=== PATIENT | female | born 1995 | race Caucasian/White ===

== ENCOUNTER 2021-11-07 14:06 | Outpatient (REF) | payer MEDICAID, SELFPAY ==
--- NOTE | ~2021-11-07 | US_ITS ---
EXAMINATION: US PELVIS CLINICAL INFORMATION: Irregular menses COMPARISON: None TECHNIQUE: Ultrasound of the pelvis is performed using both transabdominal and transvaginal transducers along with Doppler. Transvaginal imaging is performed due to inadequate visualization transabdominally. FINDINGS: The uterus is retroverted and retroflexed and measures 12.7 x 3.8 x 5.2 cm in dimension. No focal uterine lesion is seen. Endometrial thickness is normal measuring 0.8 cm. The right ovary is normal-appearing and measures 3.7 x 3.2 x 2.2 m. The left ovary is enlarged and measures 6 x 2.4 x 4.8 cm. There is a heterogeneous partially hyperechoic partially hypoechoic lesion in the left ovary measuring 3.3 x 1.8 x 3.5 cm. This is better seen transabdominally. Complex cyst and dermoid should be considered. Follow-up exam in 10-12 weeks following several menstrual cycles is recommended. There is trace fluid in the pelvis. US/US pelvic and transvaginal IMPRESSION: Normal-appearing uterus and endometrium. Normal-appearing right ovary. Enlarged left ovary and 3.3 x 1.8 x 3.5 cm complex left ovarian lesion, question representing complex cyst or possible dermoid. Short-term follow-up exam in 10-12 weeks following several menstrual cycles is recommended.
== END 2021-11-07 14:07 | disposition home or self-care (01) ==
LOC: HO.US 14:06
PROVIDERS: PCP Internal Medicine; Visit Provider Internal Medicine
DX: D36.9 Benign neoplasm, unspecified site (principal); N92.6 Irregular menstruation, unspecified
CPT/HCPCS: 76830; 76856

== ENCOUNTER 2024-06-09 15:03 | Outpatient (REF) | payer MEDICAID, SELFPAY ==
[2024-06-12 06:07] LABS: TS Negative Control Passed; TS Panel A 0; TS Panel B 0; TS Positive Control Passed; TSpotTB Negative (Negative)
== END 2024-06-09 15:04 | disposition home or self-care (01) ==
LOC: HO.HHCL 15:03
PROVIDERS: Visit Provider Nurse Practitioner Primary Care
DX: Z00.00 Encounter for general adult medical examination without abnormal findings (principal)
CPT/HCPCS: 36415; 86481

== ENCOUNTER 2024-07-01 16:58 | Outpatient (REF) | payer MEDICAID, SELFPAY ==
[2024-07-02 06:02] LABS: CT PCR NOT DETECTED (Not Detect.); NG PCR NOT DETECTED (Not Detect.)
[2024-07-02 10:56] LABS: Bacterial Vaginosis PCR POSITIVE (Negative); Candida Group PCR NOT DETECTED (Not Detect); Candida glab krusei PCR NOT DETECTED (Not Detect); Trichomonas vaginalis PCR NOT DETECTED (Not Detect)
== END 2024-07-01 16:59 | disposition home or self-care (01) ==
LOC: HO.HHCLNP 16:58
PROVIDERS: Visit Provider Nurse Practitioner Primary Care
DX: N89.8 Other specified noninflammatory disorders of vagina (principal); Z11.3 Encounter for screening for infections with a predominantly sexual mode of transmission
CPT/HCPCS: 0352U; 87491; 87591

== ENCOUNTER 2025-07-02 15:51 | Outpatient (REF) | payer MEDICAID, SELFPAY ==
--- OUTSIDE RECORDS SUMMARY | 2025-07-02 09:30 | XMS_ITS | Encounter Summary ---
Author Organization [employer] Address [address] [place] [address] Care Team Providers Care Sheriffs Officer Name Role Phone Flora Vargas Primary Care Provider [phone] Reason for Visit * Reason Comments Annual Exam Encounter Details Date Type Department Care Team ([facility] st Contact Info) Description 07/02/2025 9:30 AM EST Office Visit [facility] [address], [place] [id number] Flora Vargas ANP [address] [place] [address] Healthcare maintenance (Primary Dx); Anxiety and depression; Constipation, unspecified constipation type; Routine screening for STI (sexually transmitted infection); Fatigue, unspecified type; Other tobacco product nicotine dependence, uncomplicated; Dietary counseling; Exercise counseling Social History Tobacco Use Types Packs/Day Years Used Date Smoking Tobacco: Never Smokeless Tobacco: Current Tobacco Cessation:Ready to Q uit: Not Asked; Counseling Given: Not Answered Alcohol Use Standard Drinks/Week Comments Not Currently 0 (1 standard drink = 0.6 oz pur e alcohol) Alcohol Answer Date Recorded How often do you have a drink containing alcohol ? 1 07/01/2024 How many drinks containing a lcohol do you have on a typical day when you are drinking? 2 07/01/2024 How often do you have six or more drinks on one occasion? 1 07/01/2024 Depression Answer Date Recorded Patient Health Questionnaire-9 Score 2 07/02/2025 Patient Health Questionnaire-9 Score 2 07/02/2025 Last PHQ-9: Questionnaire Data Not on file 1 09/01/2024 Housing Stability Answer Date Recorded What is your housing situation today? I have aleksandr martinez 06/24/[address] you li ve. Do you have problems with any of the following? None of the above 06/24/2024 Food Insecurity Answer Date Recorded Within the past 12 months, y ou worried that your food would run out before you got money to buy more: Never True 06/24/2024 Within the past 12 months,th e food you bought just didn't last and you didn't have enough money to get more: Never True 07/2024 Transportation Answer Date Recorded In the past 12 months, has l ack of transportation kept you from medical appts, meetings, work or from getting things needed for daily living? No 06/24/2024 Utilities Answer Date Recorded In the past 12 months, has t he electric, gas, oil or water company threatened to shut off services in your home? No 06/24/2024 Depression Answer Date Recorded Patient Health Questionnaire-2 Score 0 07/02/2025 Internet Access Answer Date Recorded Internet Access Q1 Yes 06/24/2024 Internet Access Q2 Not on file 06/24/2024 Comments Unknown Sex and Gender Information Value Date Recorded Sex Assigned at Female 06/12/2022 10:36 AM EDT Legal Sex Female 10:36 AM EDT Gender Identity Female 06/12/2022 10:36 AM EDT Sexual Orientation Straight 06/12/2022 10 :36 AM EDT documented as of this encounter Last Filed Vital Signs Vital Sign Reading Time Taken Comments Blood Pressure 110/78 07/02/2025 9:46 AM EST Pulse 78 07/02/2025 9:46 AM EST Temperature 36.6 C (97.8 F) 07/02/2025 9:46 AM EST Respiratory Rate 13 07/02/2025 9:46 AM EST Oxygen Saturation 98% 07/02/2025 9:46 AM EST Inhaled Oxygen Concentration - - Weight 82.8 kg (182 lb 8 oz) 07/02/2025 9:46 AM EST Height 157.5 cm (5' 2 ) 07/02/2025 9:46 AM EST Body Mass Index 33.38 07/02/2025 9:46 AM EST documented in this encounter Functional Status * Over the past 2 weeks, how often have you been bothered by any of the following problems? Question Answer Date of Assessment Author Patient Health Questionnaire -2 Score 0 07/02/2025 10:26 AM Kenya Ferrell MA * Little interest or pleasure in doing things Answer Date of Assessment Author Not at all 07/02/2025 10:26 AM Kenya Ferrell MA * Feeling down, depressed, or hopeless Answer Date of Assessment Author Not at all 07/02/2025 10:26 AM Kenya Ferrell MA * Trouble falling or staying asleep, or sleeping too much Answer Date of Assessment Author Several days 07/02/2025 10:26 AM Kenya Ferrell MA * Feeling tired or having little energy Answer Date of Assessment Author Not at all 07/02/2025 10:26 AM Kenya Ferrell MA * Poor appetite or overeating Answer Date of Assessment Author Several days 07/02/2025 10:26 AM Kenya Ferrell MA * Feeling bad about yourself - or that you are a failure or have let yourself or your family down Answer Date of Assessment Author Not at all 07/02/2025 10:26 AM Kenya Ferrell MA * Trouble concentrating on things, such as reading the newspaper or watching television Answer Date of Assessment Author Not at all 07/02/2025 10:26 AM Kenya Ferrell MA * Moving or speaking so slowly that other people could have noticed? Or the opposite - being so fidgety or restless that you have been moving around a lot more than usual. Answer Date of Assessment Author Not at all 07/02/2025 10:26 AM Kenya Ferrell MA * Thoughts that you would be better off or hurting yourself in some way Answer Date of Assessment Author Not at all 07/02/2025 10:26 AM Kenya Ferrell MA * Patient Health Questionnaire-9 Score Answer Date of Assessment Author 2 07/02/2025 10:26 AM Kenya Ferrell MA * Over the last 2 weeks, how often have you been bothered by any of the following problems? Question Answer Date of Assessment Author Feeling nervous, anxious, or on edge 1 07/02/2025 10:25 AM EST Kenya Courtney MA Not being able to stop or co ntrol worrying 0 07/02/2025 10:25 AM EST Kenya Courtney MA Worrying too much about diff erent things 0 07/02/2025 10:25 AM Kenya Ferrell MA Trouble relaxing 0 07/02/2025 10:25 AM EST Kenya Courtney MA Being so restless that it is hard to sit still 0 07/02/2025 10:25 AM EST Kenya Courtney MA Becoming easily annoyed or irritable 0 07/02/2025 10:25 AM Kenya Ferrell MA Feeling afraid as if somethi ng awful might happen 0 07/02/2025 10:25 AM Kenya Ferrell MA TESSA-7 Total Score 1 07/02/2025 10:25 AM Kenya Ferrell MA documented as of this encounter Patient Instructions * Patient Instructions* ALEX San - 07/02/2025 9:30 AM EST Esquema t??josr de tratamiento con parches de nicotina al comenzar con 14 mg: Parche de 14 mg al d??a melyssa 2 a 6 semanas ? Luego, reducir la dosis: 7 mg al d??a melyssa 2 a 6 semanas Para ayudarte a dejar de fumar: usa chicles sin az??car, palillos de dientes, mandarinas, palitos de zanahoria, aumenta el ejercicio, chacha a caminar con regularidad y stevenson de vapear dentro de casa o en el coche. No sustituyas la nicotina por snacks salados o azucarados. [address] Sunday through Sunday 6:00 AM - 3:30 PM* Sunday 6:30 AM - 3 PM* [phone] documented in this encounter Progress Notes * ALEX San - 07/02/2025 9:30 AM EST SUBJECTIVE: Mary Jo Curran is a 29 y.o. year old female who presents for routine physical exam. Denies recent illness, injury, or hospitalization. PMH anxiety, depression, nicotine vape Pap due December 2025 Acute Concerns: Vaping/Nicotine Use - Uses vape containing nicotine - Partner also vapes - Has tried nicotine gum in the past - wants to stop Tiredness - Experiences everyday tiredness, does not exercise or drink enough water. Denies SOB. Chronic constipation is better w/ senna. Does not eat much fruit/veg. Lives w/ and 2 kids. Safe at home BCM BTL BMI Readings from Last 4 Encounters: 07/02/25 33.38 kg/m?? 07/01/24 31.17 kg/m?? 12/25/22 31.53 kg/m?? 10/26/22 32.85 kg/m?? Wt Readings from Last 4 Encounters: 07/02/25 182 lb 8 oz (82.8 kg) 07/01/24 170 lb 6.4 oz (77.3 kg) 12/25/22 172 lb 6.4 oz (78.2 kg) 10/26/22 179 lb 9.6 oz (81.5 kg) Social History Social History Narrative Not on file Problem List[1] Surgical History[2] Family History[3] Review of Systems Constitutional: Positive for fatigue. Negative for chills and fever. HENT: Negative for sore throat. Respiratory: Negative for cough and shortness of breath. Cardiovascular: Negative for chest pain. Gastrointestinal: Negative for constipation and diarrhea. Endocrine: Negative for polydipsia, polyphagia and polyuria. Genitourinary: Negative for dysuria. Musculoskeletal: Negative for arthralgias and back pain. OBJECTIVE: Vitals: 07/02/25 0946 BP: 110/78 BP Location: Left arm Patient Position: Sitting BP Cuff Size: Adult Pulse: 78 Resp: 13 Temp: 97.8 ??F (36.6 ??C) TempSrc: Oral SpO2: 98% Weight: 182 lb 8 oz (82.8 kg) Height: 5' 2 (1.575 m) Physical Exam Constitutional: General: She is not in acute distress. Appearance: Normal appearance. She is not ill-appearing. HENT: Head: Normocephalic and atraumatic. Right Ear: Tympanic membrane, ear canal and external ear normal. Left Ear: Tympanic membrane, ear canal and external ear normal. Nose: No congestion. Mouth/Throat: Mouth: Mucous membranes are moist. Eyes: General: No scleral icterus. Extraocular Movements: Extraocular movements intact. Pupils: Pupils are equal, round, and reactive to light. Neck: Comments: No thyromegaly Cardiovascular: Rate and Rhythm: Normal rate and regular rhythm. Pulmonary: Effort: Pulmonary effort is normal. No accessory muscle usage or respiratory distress. Breath sounds: Normal breath sounds. Musculoskeletal: Right lower leg: No edema. Left lower leg: No edema. Lymphadenopathy: Cervical: No cervical adenopathy. Skin: General: Skin is warm and dry. Neurological: Mental Status: She is alert and oriented to person, place, and time. Cranial Nerves: No cranial nerve deficit. Gait: Gait normal. Psychiatric: Mood and Affect: Mood normal. Behavior: Behavior normal. ASSESSMENT/PLAN Mary Jo was seen today for annual exam. Diagnoses and all orders for this visit: Healthcare maintenance (Primary), dietary and exercise counseling Lifestyle recommendations to improve heart health & lower cholesterol: be as active as able, ideally exercise 150min moderate intensity or 75min vigorous intensity weekly; increase intake of vegetables, fruits, whole grains, fish. Try to minimize intake of sugary or greasy food and drink. Use olive oil or vegetable, peanut, canola, or similar oil for cooking. Decrease or stop drinking alcoholif you drink, quit/decrease vaping/smoking if you smoke. Recommend: Daily exercise at least 30min, moderate intensity, incorporating both cardiovascular exercise and weight training. Adequate protein intake, Recommended at least 20 g per meal of protein to assist with satiety. Decrease soda and sugary beverage consumption. - Lipid Panel, Standard; Future - Hemoglobin A1c; Future - Comprehensive Metabolic Panel; Future - T-SPOT??.TB; Future Anxiety and depression Comments: stable, declines BH. PHQ negative today. encouraging healthy coping. Constipation, unspecified constipation type Cont PRN senna and increase water and fiber intake Routine screening for STI (sexually transmitted infection) - HIV-1/2 Antigen and Antibodies, Fourth Generation, with Reflexes; Future - Hepatitis C Antibody with Reflex to HCV, RNA, Quantitative, Real-Time PCR; Future - Syphilis Screen; Future - Cancel: Chlamydia/N. Gonorrhoeae RNA, TMA, Urogenitial; Future - Chlamydia/N. Gonorrhoeae, PCR, Urine Fatigue, unspecified type - CBC auto differential; Future Other tobacco product nicotine dependence, uncomplicated - nicotine (Nicoderm CQ) 14 MG/24HR patch; Place 1 patch on the skin 1 (one) time each day at the same time. - nicotine (Nicoderm, Step 3) 7 MG/24HR patch; Place 1 patch on the skin 1 (one) time each day at the same time. This note was drafted using Ambient (AI) technology. The patient/patient's guardian has been informed and has consented to the use of this technology: Yes Based on our discussion, I have outlined the following instructions for you: - Make time for regular exercise, such as using an exercise bike or walking pad, and try to exercise with your partner to help with your overall health, anxiety, and fatigue. - Eat more fruits and vegetables every day. - Drink enough water throughout the day to stay hydrated. - Go for the laboratory tests that have been ordered: hemoglobin, blood sugar, complete blood count, and fasting cholesterol. - You have completed a urine test for gonorrhea and chlamydia as part of routine screening. - Use the 14 mg nicotine patch for up to 6 weeks, and you can switch to the 7 mg patch when you feel ready. - If you notice vivid or unusual dreams while using the nicotine patch, remove it before going to bed. - Use nicotine gum if you have cravings, and try regular sugar-free gum, toothpicks, or healthy snacks like mandarins or carrot sticks instead of sugary foods. - Make rules to avoid vaping in your house, car, and around children. - Encourage your partner to join you in quitting vaping. Thank you again for your visit, and we look forward to supporting you in your journey to better health. Follow Up: 6 weeks nicotine f/u Medications Ordered Prior to Encounter[4] Samoan Translation: Kenya ALEXANDER provided Samoan interpretation. [1] Patient Active Problem List Diagnosis Dermoid cyst of left ovary Constipation Anxiety and depression [2] History reviewed. No pertinent surgical history. [3] No family history on file. [4] Current Outpatient Medications on File Prior to Visit Medication Sig Dispense Refill hydrOXYzine HCl (Atarax) 25 MG tablet TAKE 1 TABLET NEEDED FOR ANXIETY, UP TO 3 TIMES A DAY 90 tablet 1 senna-docusate sodium (Senokot-S) 8.6-50 MG tablet 1-2 tabs at bedtime as needed for constipation 180 tablet 3 No current facility-administered medications on file prior to visit. documented in this encounter Miscellaneous Notes * Patient Education Note - ALEX San - 07/02/2025 3:06 PM EST Images from the original note were not included. Educaci?n del paciente Tabla de contenidos Informaci?n sobre el cigarrillo electr?kennedy (Electronic Cigarette Information) Para moody videos y toda maddox educaci?n en l?deniz, visite [email or web address] o escanee juana c?digo QR con maddox tel?fono inteligente. El acceso a juana contenido expirar?? en un a?o. Informaci?n sobre el cigarrillo electr?kennedy Electronic Cigarette Information Los cigarrillos electr?nicos son dispositivos a bater?a que administran nicotina, bulmaro droga muy adictiva, al cuerpo. Vienen en muchas formas, lasha la forma de un cigarrillo, bulmaro pipa, un l?piz e incluso lasha bulmaro memoria USB. Los cigarrillos electr?nicos pueden denominarse cigarros de vapeo, vaporizadores, vapeadores y sistemas electr?nicos de suministro de nicotina (electronic nicotine delivery systems, ENDS). Los cigarrillos electr?nicos tienen un cartucho que contiene bulmaro forma l?quida de nicotina. Cuando bulmaro persona usa el dispositivo, el l?quido se calienta. Luego se convierte en un vapor que la persona inhala. El consumo de cigarrillos electr?nicos puede denominarse ?vapeo?. Se amish que la nicotina aumenta el riesgo de padecer ciertos tipos de c?ncer. Adem?s de la nicotina, los cigarrillos electr?nicos pueden contener otras sustancias qu?micas perjudiciales y cancer?genas, lasha las siguientes: Formaldeh?do. Acetaldeh?do. Metales pesados. Part?culas ultrafinas que pueden inhalarse hacia lo profundo de los pulmones. Colorantes y saborizantes qu?micos. No est?? naman cu?nta nicotina se inhala al vapear; adem?s es dif?cil saber qu?? sustancias qu?micas hay en los l?quidos que se convierten en vapor. No se conocen completamente los efectos del vapeo en la lou, jer es importante que sepa los posibles peligros de usar estos productos. Algunas personas pueden consumir cigarrillos electr?nicos para dejar de fumar tabaco. Sin embargo, no se orellana comprobado que funcione, y la Food and Drug Administration (Administraci?n de Alimentos y Medicamentos, FDA) no orellana aprobado los cigarrillos electr?nicos para juana prop?sito. ?C?mo me puede afectar el consumo de cigarrillos electr?nicos? Podr?a estar en riesgo de desarrollar bulmaro enfermedad pulmonar grave. Hay informes de un aumento en los casos de problemas pulmonares graves, e incluso de muerte, asociados con el consumo de cigarrillos electr?nicos. Puede correr un riesgo a?n m?s alto si: ? Compra cigarrillos electr?nicos o aceites para vapeo en la bowser. ? Agrega sustancias a los cigarrillos electr?nicos que no est?n indicadas por el fabricante. El vapeo puede generarle un deseo incontenible de consumir nicotina. La nicotina hace lo siguiente: ? Cambia los niveles de az?car en la anish. ? Aumenta la frecuencia card?roseanna, la presi?n arterial y la frecuencia respiratoria. ? Aumenta el riesgo de formaci?n de co?gulos de anish (estado hipercoagulable) y de tener diabetes. ? Aumenta el riesgo de enfermedad de las enc?as, que puede conducir a la p?rdida de dientes. Si fuma cigarrillos electr?nicos, es m?s probable que comience a fumar o que fume m?s cigarrillos de tabaco. Volverse adicto a la nicotina puede hacer que el cerebro sea m?s sensible a otras drogas adictivas.Es posible que empiece a consumir otras sustancias adictivas. Puede estar en riesgo de tener bulmaro sobredosis de nicotina. La intoxicaci?n por nicotina puede causar n?useas, v?mitos, convulsiones y dificultad para respirar. El vapeo tambi?n se orellana asociado a la disminuci?n de la memoria y de la concentraci?n en ni?os y adolescentes. Si est?? embarazada, la nicotina de los cigarrillos electr?nicos puede ser perjudicial para el beb?. La nicotina puede causar lo siguiente: ? Problemas cerebrales o pulmonares en el beb?. ? Nacimiento prematuro del beb?. ? Nacimiento del beb?? con un bajo peso. ?Qu?? medidas puedo favio para dejar de vapear? Si puede, deje de vapear por maddox cuenta antes de convertirse en adicto a la nicotina. Si necesita ayuda para dejar de fumar, consulte al m?dico. Existen kori formas eficaces de luchar contra la adicci?n a la nicotina: Terapia de reemplazo de la nicotina. El uso de goma de mascar o un parche con nicotina bloquean el deseo intenso de consumir nicotina. Con el tiempo, puede reducir la cantidad de nicotina que utilizahasta que pueda dejar de consumir nicotina por completo sin tener antojos. Medicamentos recetados aprobados para combatir la adicci?n a la nicotina. Estos impiden el deseo intenso de consumir nicotina o bloquean los efectos de la nicotina. Terapia conductual. Pueden incluir: ? Un programa de autoayuda para dejar de fumar. ? Terapia individual o grupal. ? Un lori de apoyo para dejar de fumar. Hay varios programas nacionales que pueden ayudarle a dejar de fumar o vapear. Estos incluyen los siguientes: Programas de mensajes de texto, lasha SmokefreeTXT. Aplicaciones para tel?fonos m?viles, incluida la aplicaci?n gratuita quitSTART. L?neas directas, lasha [phone] ( ). D?nde encontrar apoyo Puede obtener apoyo en estos sitios: U.S. Department of Health and Human Services (Departamento de Lou y Servicios Humanos de los [place]): smokefree.gov [place] Lung Association (Asociaci?n Estadounidense del Pulm?n): www.lung.org D?nde buscar m?s informaci?n Obtenga m?s informaci?n sobre los cigarrillos electr?nicos en: National [place] on Drug Abuse (Instituto Nacional sobre el Abuso de Drogas): www.drugabuse.gov Centers for Disease Control and Prevention (Centros para el Control y la Prevenci?n de Enfermedades): www.cdc.gov Resumen Los cigarrillos electr?nicos pueden causar adicci?n a la nicotina. Los cigarrillos electr?nicos no est?n aprobados lasha bulmaro forma de dejar de fumar. No es bulmaro alternativa sin riesgos a fumar tabaco. Hay informes de un aumento en los casos de problemas pulmonares graves, e incluso de muerte, asociados con el consumo de cigarrillos electr?nicos. Si puede dejar de vapear por maddox cuenta, h?isac antes de volverse adicto a la nicotina. Si necesita ayuda para dejar de fumar, consulte al m?dico. Existen varios m?todos y programas que pueden ayudarle a dejar de fumar o de vapear. Esta informaci?n no tiene lasha fin reemplazar el consejo del m?dico. Aseg?rese de hacerle al m?dicocualquier pregunta que tenga. Document Released: 2017-04-04 Document Updated: 2022-05-17 Document Reviewed: 2022-05-17 VANCL Patient Education ? 2024 [employer]. * Patient Education Note - ALEX San - 07/02/2025 3:06 PM EST Images from the original note were not included. Patient Education Table of Contents Informaci?n sobre el cigarrillo electr?kennedy (Electronic Cigarette Information) To view videos and all your education online visit, [email or web address] or scan this QR code with your smartphone. Access to this content will in one year. Informaci?n sobre el cigarrillo electr?kennedy Electronic Cigarette Information Los cigarrillos electr?nicos son dispositivos a bater?a que administran nicotina, bulmaro droga muy adictiva, al cuerpo. Vienen en muchas formas, lasha la forma de un cigarrillo, bulmaro pipa, un l?piz e incluso lasha bulmaro memoria USB. Los cigarrillos electr?nicos pueden denominarse cigarros de vapeo, vaporizadores, vapeadores y sistemas electr?nicos de suministro de nicotina (electronic nicotine delivery systems, ENDS). Los cigarrillos electr?nicos tienen un cartucho que contiene bulmaro forma l?quida de nicotina. Cuando bulmaro persona usa el dispositivo, el l?quido se calienta. Luego se convierte en un vapor que la persona inhala. El consumo de cigarrillos electr?nicos puede denominarse ?vapeo?. Se amish que la nicotina aumenta el riesgo de padecer ciertos tipos de c?ncer. Adem?s de la nicotina, los cigarrillos electr?nicos pueden contener otras sustancias qu?micas perjudiciales y cancer?genas, lasha las siguientes: Formaldeh?do. Acetaldeh?do. Metales pesados. Part?culas ultrafinas que pueden inhalarse hacia lo profundo de los pulmones. Colorantes y saborizantes qu?micos. No est?? naman cu?nta nicotina se inhala al vapear; adem?s es dif?cil saber qu?? sustancias qu?micas hay en los l?quidos que se convierten en vapor. No se conocen completamente los efectos del vapeo en la lou, jer es importante que sepa los posibles peligros de usar estos productos. Algunas personas pueden consumir cigarrillos electr?nicos para dejar de fumar tabaco. Sin embargo, no se orellana comprobado que funcione, y la Food and Drug Administration (Administraci?n de Alimentos y Medicamentos, FDA) no orellana aprobado los cigarrillos electr?nicos para juana prop?sito. ?C?mo me puede afectar el consumo de cigarrillos electr?nicos? Podr?a estar en riesgo de desarrollar bulmaro enfermedad pulmonar grave. Hay informes de un aumento en los casos de problemas pulmonares graves, e incluso de muerte, asociados con el consumo de cigarrillos electr?nicos. Puede correr un riesgo a?n m?s alto si: ? Compra cigarrillos electr?nicos o aceites para vapeo en la bowser. ? Agrega sustancias a los cigarrillos electr?nicos que no est?n indicadas por el fabricante. El vapeo puede generarle un deseo incontenible de consumir nicotina. La nicotina hace lo siguiente: ? Cambia los niveles de az?car en la anish. ? Aumenta la frecuencia card?roseanna, la presi?n arterial y la frecuencia respiratoria. ? Aumenta el riesgo de formaci?n de co?gulos de anish (estado hipercoagulable) y de tener diabetes. ? Aumenta el riesgo de enfermedad de las enc?as, que puede conducir a la p?rdida de dientes. Si fuma cigarrillos electr?nicos, es m?s probable que comience a fumar o que fume m?s cigarrillos de tabaco. Volverse adicto a la nicotina puede hacer que el cerebro sea m?s sensible a otras drogas adictivas.Es posible que empiece a consumir otras sustancias adictivas. Puede estar en riesgo de tener bulmaro sobredosis de nicotina. La intoxicaci?n por nicotina puede causar n?useas, v?mitos, convulsiones y dificultad para respirar. El vapeo tambi?n se orellana asociado a la disminuci?n de la memoria y de la concentraci?n en ni?os y adolescentes. Si est?? embarazada, la nicotina de los cigarrillos electr?nicos puede ser perjudicial para el beb?. La nicotina puede causar lo siguiente: ? Problemas cerebrales o pulmonares en el beb?. ? Nacimiento prematuro del beb?. ? Nacimiento del beb?? con un bajo peso. ?Qu?? medidas puedo favio para dejar de vapear? Si puede, deje de vapear por maddox cuenta antes de convertirse en adicto a la nicotina. Si necesita ayuda para dejar de fumar, consulte al m?dico. Existen kori formas eficaces de luchar contra la adicci?n a la nicotina: Terapia de reemplazo de la nicotina. El uso de goma de mascar o un parche con nicotina bloquean el deseo intenso de consumir nicotina. Con el tiempo, puede reducir la cantidad de nicotina que utilizahasta que pueda dejar de consumir nicotina por completo sin tener antojos. Medicamentos recetados aprobados para combatir la adicci?n a la nicotina. Estos impiden el deseo intenso de consumir nicotina o bloquean los efectos de la nicotina. Terapia conductual. Pueden incluir: ? Un programa de autoayuda para dejar de fumar. ? Terapia individual o grupal. ? Un lori de apoyo para dejar de fumar. Hay varios programas nacionales que pueden ayudarle a dejar de fumar o vapear. Estos incluyen los siguientes: Programas de mensajes de texto, lasha SmokefreeTXT. Aplicaciones para tel?fonos m?viles, incluida la aplicaci?n gratuita quitSTART. L?neas directas, lasha ( ). D?nde encontrar apoyo Puede obtener apoyo en estos sitios: U.S. Department of Health and Human Services (Departamento de Lou y Servicios Humanos de los [place] Un[place]): smokefree.gov [place] Lung Association (Asociaci?n Estadounidense del Pulm?n): www.lung.org D?nde buscar m?s informaci?n Obtenga m?s informaci?n sobre los cigarrillos electr?nicos en: National [place] on Drug Abuse (Instituto Nacional sobre el Abuso de Drogas): www.drugabuse.gov Centers for Disease Control and Prevention (Centros para el Control y la Prevenci?n de Enfermedades): www.cdc.gov Resumen Los cigarrillos electr?nicos pueden causar adicci?n a la nicotina. Los cigarrillos electr?nicos no est?n aprobados lasha bulmaro forma de dejar de fumar. No es bulmaro alternativa sin riesgos a fumar tabaco. Hay informes de un aumento en los casos de problemas pulmonares graves, e incluso de muerte, asociados con el consumo de cigarrillos electr?nicos. Si puede dejar de vapear por maddox cuenta, h?isac antes de volverse adicto a la nicotina. Si necesita ayuda para dejar de fumar, consulte al m?dico. Existen varios m?todos y programas que pueden ayudarle a dejar de fumar o de vapear. Esta informaci?n no tiene lasha fin reemplazar el consejo del m?dico. Aseg?rese de hacerle al m?dicocualquier pregunta que tenga. Document Released: 2017-04-04 Document Updated: 2022-05-17 Document Reviewed: 2022-05-17 Elsevier Patient Education ? 2024 [employer] documented in this encounter Plan of Treatment Upcoming Encounters Date Type Department Care Team (Late st Contact Info) Description 09/02/2025 4:00 PM EST Telemedicine [facility] [address] [place] [address] Flora Vargas ANP [address] [place], [place] [phone] Scheduled Orders Name Type Priority Associated Diagnoses Orde r Schedule Lipid Panel, Standard Lab Routine Healthcare maintenance Expected: 07/02/2025 (Approximate), Expires: 07/02/2026 HIV-1/2 Antigen and Antibodies, Fourth Generation, with Reflexes Lab Routine Routine screening for STI (sexually transmitted infection) Expected: 07/02/2025 (Approximate), Expires: 07/02/2026 Hepatitis C Antibody with Reflex to HCV, RNA, Quantitative, Real-Time PCR Lab Routine Routine screening for STI (sexually transmitted infection) Expected: 07/02/2025 (Approximate), Expires: 07/02/2026 Syphilis Screen Lab Routine Routine screening for STI (sexually transmitted infection) Expected: 07/02/2025 (Approximate), Expires: 07/02/2026 Hemoglobin A1c Lab Routine Healthcare maintenance Expected: 07/02/2025 (Approximate), Expires: 07/02/2026 CBC auto differential Lab Routine Fatigue, unspecified type Expected: 07/02/2025 (Approximate), Expires: 07/02/2026 Comprehensive Metabolic Panel Lab Routine Healthcare maintenance Expected: 07/02/2025 (Approximate), Expires: 07/02/2026 T-SPOT .TB Lab Routine Healthcare maintenance Expected: 07/02/2025 (Approximate), Expires: 07/02/2026 documented as of this encounter Procedures Procedure Name Priority Date/Time Associated Diagnosis Comments CHLAMYDIA/TRICHOMON /NEISSERIA GONORRHOEAE, PCR, URINE Routine 07/02/2025 10:23 AM EST Routine screening for STI (sexually transmitted infection) documented in this encounter Results * Chlamydia/N. Gonorrhoeae, PCR, Urine (07/02/2025 10:23 AM EST) CT PCR, Urine NOT DETECTED Not Detect. [facility] Comment:A not detected test result does not exclude the possibilityof infection because test results can be affected byimproper specimen collection, concurrent antibiotic therapy,or the number of organisms in the specimen which may bebelow the sensitivity of the test. As with many diagnostictests, results from the Xpert CT/NG assay should beinterpreted in conjunction with other laboratory andclinical data available to the clinician.The Xpert CT/NG assay should not be used for the evaluationof suspected sexual abuse or for other medico-legalindications. Additional testing is recommended in anycircumstance when false positive or false negative resultscould lead to adverse medical, social or psychologicalconsequences. NG PCR, Urine NOT DETECTED Not Detect. [facility] Comment:A not detected test result does not exclude the possibilityof infection because test results can be affected byimproper specimen collection, concurrent antibiotic therapy,or the number of organisms in the specimen which may bebelow the sensitivity of the test. As with many diagnostictests, results from the Xpert CT/NG assay should beinterpreted in conjunction with other laboratory andclinical data available to the clinician.The Xpert CT/NG assay should not be used for the evaluationof suspected sexual abuse or for other medico-legalindications. Additional testing is recommended in anycircumstance when false positive or false negative resultscould lead to adverse medical, social or psychologicalconsequences. Urine (Urine, Random) 07/02/2025 10:23 AM EST 07/02/2025 3:53 PM EST Flora Vargas [facility] URINE ORDERABLES Final Resul t [facility] [address] [place] [phone] documented in this encounter Visit Diagnoses Diagnosis Healthcare maintenance- Primary Anxiety and depression Constipation, unspecified constipation type Routine screening for STI (sexually transmitted infection) Screening examination for venereal disease Fatigue, unspecified type Other tobacco product nicotine dependence, uncomplicated Dietary counseling Dietary surveillance and counseling Exercise counseling documented in this encounter Additional Health Concerns Assessment Noted Time PHQ-9 Depression Total Score: 2 07/02/20 25 10:26 AM EST documented as of this encounter Care Teams Sheriffs Officer Relationship Specialty Start Date End Date Flora Vargas ANP [address] [place] [address] PCP - General Family Medicine 07/10/22 documented as of this encounter
[2025-07-02 17:38] LABS: CT PCR Urine NOT DETECTED (Not Detect.); NG PCR Urine NOT DETECTED (Not Detect.)
--- OUTSIDE RECORDS SUMMARY | 2025-07-02 20:48 | XMS_ITS | Clinical Summary ---
Author Organization [employer] Co[employer] Address [address] [facility] [address]t [place] [address] Care Team Providers Care Mannequin Mounter Name Role Phone Flora Vargas ALEX Primary Care Provider [phone] Allergies No known active allergies Medications hydrOXYzine HCl (Atarax) 25 MG tabletIndications :Anxiety and depression TAKE 1 TABLET NEEDED FOR ANXIETY, UP TO 3 TIMES A DAY 90 tablet 1 07/01/20 24 Active senna-docusate sodium (Senokot-S) 8.6-50 MG tabletIndications :Constipation, unspecified constipation type 1-2 tabs at bedtime as needed for constipation 180 tablet 3 07/01/20 24 Active nicotine (Nicoderm CQ) 14 MG/24HR patchIndications: Other tobacco product nicotine dependence, uncomplicated Place 1 patch on the skin 1 (one) time each day at the same time. 42 patch 07/02/20 25 026 Active nicotine (Nicoderm, Step 3) 7 MG/24HR patchIndications: Other tobacco product nicotine dependence, uncomplicated Place 1 patch on the skin 1 (one) time each day at the same time. 14 patch 1 07/02/20 25 Active Active Problems Problem Noted Date Diagnosed Date Anxiety and depression 07/02/2025 Constipation 07/01/2024 Overview (07/01/2024): encourage high fiber diet, increased hydration, PRN senna Dermoid cyst of left ovary 10/26/2022 Encounters Date Type Department Care Team Description 07/02/2025 9:30 AM EST Office Visit [address] [address] Flora Vargas ANP Healthcare maintenance (Primary Dx); Anxiety and depression; Constipation, unspecified constipation type; Routine screening for STI (sexually transmitted infection); Fatigue, unspecified type; Other tobacco product nicotine dependence, uncomplicated; Dietary counseling; Exercise counseling 07/02/2025 Results Follow-Up [address] [address] Flora Vargas ANP Chlamydia/N. Gonorrhoeae, PCR, Urine 07/02/2025 Travel 07/01/[address] [address] Flora Vargas ANP chart prep 06/30/2025 Travel 06/24/2025 Patient Outreach [address] [address] Flora Vargas ANP Pre-visit Planning (SDOH Screening negative and Tobacco screening negative) 04/21/[address] [address] Flora Vargas ANP nov recall from Last 3 Months Immunizations Immunization Administration Dates Next Due DTaP 09/14/1999, 7,03/20/1996,01/14,1995 HPV 9-Valent 07/16/2007,01/14/2007,11/12/2006 Hep A, Adult 11/09/2010 Hep A, Unspecified 05/12/2011 Hep B, Unspecified 05/22/1996,01/15/1996 Hep B, adult 1995 HiB, unspecified 12/12/1996,03/20/1996, 6 Hib (PRP-T) 1995 IPV 09/14/1999, 6,01/15/1996,11/12 Influenza injectable quadriv alent preservative free 07/20/2021,06/03/2019,01/21/2015,07/16,01/14/2007 MMR 09/14/1999,09/24/1996 Meningococcal MCV4, Unspecified 07/04/2013 Meningococcal MCV4P ACYW-135 11/12/2006 Tdap 07/20/2021,2006 Varicella 07/04/2013,05/12/2011 Social History Tobacco Use Types Packs/Day Years [...] Orientation Straight 06/12/2022 10 :36 AM EDT Last Filed Vital Signs Vital Sign Reading [...] Mass Index 33.38 07/02/2025 9:46 AM EST Plan of Treatment Upcoming Encounters Date Type Department Care Team (Late st Contact Info) Description 09/02/2025 4:00 PM EST Telemedicine [facility] [address] [place], [place] [phone] Flora Vargas, ANP [address] [place], [place] [phone] Health Maintenance Due Date Last Done Comments HIV Screening 1995 Lipid Panel 1995 Family Planning (PISQ) 2010 Hepatitis C Screening 2013 COVID-19 Vaccine ( season) 2025 Influenza Vaccine (#1) 2025 , 06/03/2019, 01/21/2015, Additional history exists Pap Smear 12/29/2025 12/29/2022 SDOH Screening 06/24/2026 06/24/2025 Disability Screening 06/30/2026 06/30/2025 Alcohol/Substance Use Screening 07/02/2026 07/02/2025 Depression Screening 07/02/2026 07/02/2025, 07/02/20 Tobacco Screening 07/02/2026 07/02/2025 DTaP/Tdap/Td Vaccines (8 - Td or Tdap) 07/20/2031 07/20/2021, 2006, 09/14/1999, Additional history exists Zoster Vaccines (1 of 2) 2045 RSV Patients and Patients Aged 60 years or older (1 - 1-dose 75+ series) 2070 Hepatitis B Vaccines Completed 05/22/1996, 01/15/1996, 1995 HIB Vaccines Completed 12/12/1996, 03/1996, 01/15/1996, Additional history exists IPV Vaccines Completed 09/14/1999, 03/1996, 01/15/1996, Additional history exists HPV Vaccines Completed 07/16/2007, 11/2006, 11/12/2006 Hepatitis A Vaccines Completed 05/12/2011, 11/10/19 11 Meningococcal Vaccine Completed 07/04/2013, 007 Meningococcal B Vaccine Aged Out No l onger eligible based on patient's age to complete this topic Pneumococcal Vaccine: Pediatrics (0 to 5 Years) and At-Risk Patients (6 to 49) Years Aged Out No longer eligible based on patient's age to complete this topic RSV under 20 months Aged Out No longe r eligible based on patient's age to complete this topic Rotavirus Vaccines Aged Out No longer eligible based on patient's age to complete this topic Procedures Procedure Name Priority Date/Time Associated Diagnosis Comments CHLAMYDIA/TRICHOMON /NEISSERIA GONORRHOEAE, PCR, URINE Routine 07/02/2025 10:23 AM EST Routine screening for STI (sexually transmitted infection) IMAGE-GUIDED PAP W/AGE BASED SCR,W/CT/NG/TRICH Routine 12/29/2022 10:05 AM EDT from Last 3 Months or Most Recently Relevant to Health Maintenance Results * Chlamydia/N. Gonorrhoeae, PCR, Urine (07/02/2025 10:23 AM EST) CT PCR, Urine NOT DETECTED Not Detect. [facility] Comment:A not detected test result does [...] NG PCR, Urine NOT DETECTED Not Detect. [facility] Comment:A not detected test result does [...] 10:23 AM EST 07/02/2025 3:53 PM EST [facility] URINE ORDERABLES Final Resul t [facility] [address] [place] [phone] * Image-Guided Pap with Age-Based Screening??with CT/NG,??Trichomonas (12/29/2022 10:05 AM EDT) Comment [email or web address] Comment: This order for age-based cervical cancer and STI screening follows ACOG guidelines(PB 168, 140, SQB987). See individual assays for performing site location. Clinical Information: None given [facility] LMP: NONE GIVEN [facility] Prev. PAP: NONE GIVEN [facility] Prev. BX: NONE GIVEN [facility] SOURCE: None given [facility] Statement Of Adequacy: [facility] Comment: Satisfactory for evaluation. Endocervical/transformation zone component absent. Interpretation/Re sult: Negative for intraepithelial lesion or malignancy. [facility] [place] [facility] Infection Shift in vaginal harry suggestive of bacterial vaginosis. [facility] [place] [facility] COMMENT: This Pap test has been evaluated with computer assisted technology. [facility] Administrator: [facility] [employer] [place] [facility] Comment: EXJ, CT(ASCP) CT Screening Location: [address] [address] (Always Message) [facility] [employer] [place] [employer] Comment: EXPLANATORY NOTE: The Pap is a screening test for cervical cancer. It is not a diagnostic test and is subject to false negative and false positive results. It is most reliable when a satisfactory sample, regularly obtained, is submitted with relevant clinical findings and history, and when the Pap result is evaluated along with historic and current clinical information. Chlamydia trachomatis RNA, TMA, Urogenital NOT DETECTED NOT DETECTED [facility] [employer] [place] [facility] Neisseria gonorrhoeae RNA, TMA, Urogenital NOT DETECTED NOT DETECTED [facility] [place] [facility] Comment [facility] [place] [employer] Comment: The analytical performance characteristics of this assay, when used to test SurePath(TM) specimens have been determined by [facility]. The modifications have not been cleared or approved by the FDA. This assay has been validated pursuant to the CLIA regulations and is used for clinical purposes. For additional information, please refer to https://[employer].Talento al Aula.Valderm/faq/EZG832 (This link is being provided for information/ educational purposes only.) Trichomonas vaginalis, QL, TMA, PAP Vial NOT DETECTED NOT DETECTED [facility] [place] [employer] Comment: The analytical performance characteristics of this assay have been determined by [facility]. The modifications have not been cleared or approved by the FDA. This assay has been validated pursuant to the CLIA regulations and is used for clinical purposes. For additional information, please refer to [email or web address].PageFreezer/ faq/Trichomonastma (This link is being provided for information/ educational purposes only.) NO COLLECTION DATE RECEIVED. WE HAVE USED THE DATE THE SPECIMEN WAS RECEIVED BY THIS LABORATORY THE COLLECTION DATE. IF THIS IS INCORRECT, PLEASE CONTACT CLIENT SERVICES. PHONE NUMBER: 12/27/2022 4:2 4 AM EDT Narrative [facility] - 12/29/2022 10:05 AM EDT FASTING: UNKNOWN Flora [facility]OHNSON LAB CYTOLOGY ORDERABLES Final Re sult [facility] [address], [place] [address] [facility] [address] [place] [phone] from Last 3 Months or Most Recently Relevant to Health Maintenance Insurance [facility] C3 Care Teams Mannequin Mounter Relationship Specialty Start Date End Date Flora Vargas ANP [address] [place] [phone] PCP - General Family Medicine 07/10/22
--- OUTSIDE RECORDS SUMMARY | 2025-07-02 20:48 | XMS_ITS | Encounter Summary ---
Author Organization [employer] Address [address] [facility] 7t [place] [address] Care Team Providers Care Horticulturalist Name Role Phone Flora Vargas Primary Care Provider [phone] Reason for Visit * Reason Onset Date Comments chart prep 07/01/2025 Encounter Details Date Type Department Care Team ([facility] st Contact Info) Description 07/01/2025 Telephone [facility] [address] [place], [place] [phone] Flora Vargas ANP [address] [place] [address] chart prep Social History Tobacco Use Types Packs/Day Years Used Date Smoking Tobacco: Never Smokeless Tobacco: Current Alcohol Use Standard Drinks/Week Comments Not Currently [...] AM EDT documented as of this encounter Miscellaneous Notes * Telephone Encounter - Kenya Courtney [place] - 07/01/2025 8:59 AM EST Chart Prep Labs: not applicable Images: not applicable Referrals: not applicable Vaccines due: Covid and Flu Screenings: HIV screening Overdue care gaps: SBIRT, PHQ-9, and TESSA-7 documented in this encounter Plan of Treatment Upcoming Encounters Date Type Department Care Team (Late st Contact Info) Description 09/02/2025 4:00 PM EST Telemedicine [facility] MED[facility]INE [address] [place] [address] Flora Vargas ANP [address] [place] [address] documented as of this encounter Visit Diagnoses Not on filedocumented in this encounter Care Teams Horticulturalist Relationship Specialty Start Date End Date Flora Vargas ANP [address] [place] [address] PCP - General Family Medicine 07/10/22 documented as of this encounter
--- OUTSIDE RECORDS SUMMARY | 2025-07-02 20:48 | XMS_ITS | Clinical Summary ---
Author Organization [facility] Address [address] [place] [address] Care Team Providers Care Express Clerk Name Role Phone Unavailable Primary Care Provider Unavailabl e Social History Tobacco Use Types Packs/Day Years Used Date Smoking Tobacco: Never Assessed Comments Unknown Sex and Gender Information Value Date Recorded Sex Assigned at Not on file Legal Sex Female 5:01 AM EST Gender Identity Not on file Sexual Orientation Not on file Plan of Treatment Health Maintenance Due Date Last Done Comments DTaP,Tdap,and Td Vaccines (1 - Tdap) 2014 Hepatitis B Vaccines (1 of 3 - 19+ 3-dose series) 2014 Cervical Cancer Screening: P ap Smear 2016 HPV Vaccines (1 - 3-dose SCD M series) 2022 Depression Screening 08/13/2024 COVID-19 Vaccine ( - 2024-2 6 season) 2025 Influenza Vaccine (#1) 2025 RSV Immunization Adult Patie nts (1 - 1-dose 75+ series) 2070 HIB Vaccines Aged Out No longer eligi ble based on patient's age to complete this topic Hepatitis A Vaccines Aged Out No long er eligible based on patient's age to complete this topic IPV Vaccines Aged Out No longer eligi ble based on patient's age to complete this topic MMR Vaccines Aged Out No longer eligi ble based on patient's age to complete this topic Meningococcal ACWY Vaccine Aged Out N o longer eligible based on patient's age to complete this topic Meningococcal B Vaccine Aged Out No l onger eligible based on patient's age to complete this topic Pneumococcal Vaccine: Pediat rics (0 to 5 Years) and At-Risk Patients (6 to 49 Years) Aged Out No longer eligible b ased on patient's age to complete this topic RSV Immunization Patients Un lisette 20 months Aged Out No longer eligible b ased on patient's age to complete this topic Varicella Vaccines Aged Out No longer eligible based on patient's age to complete this topic
--- OUTSIDE RECORDS SUMMARY | 2025-07-02 20:48 | XMS_ITS | Encounter Summary ---
Author Organization [employer] Address [address] 7[address] [place] [address] Care Team Providers Care Instrumental Musician Name Role Phone Flora Vargas ALEX Primary Care Provider [phone] Encounter Details Date Type Department Care Team (Latest Contact Info) Description 07/02/2025 Travel Social History Tobacco Use Types Packs/Day Years [...] is your housing situation today? I have aleksandrdago martinez 06/24/[address] you [...] AM EDT documented as of this encounter Functional Status * Over the [...] or on edge 1 07/02/2025 10:25 AM Kenya Ferrell MA Not being able to stop or co ntrol worrying 0 07/02/2025 10:25 AM Kenya Ferrell MA Worrying too much about diff erent things 0 07/02/2025 10:25 AM Kenya Ferrell MA Trouble relaxing 0 07/02/2025 10:25 AM Kenya Ferrell MA Being so restless that it is hard to sit still 0 07/02/2025 10:25 AM Kenya Ferrell MA Becoming easily annoyed or irritable 0 07/02/2025 10:25 AM Kenya Ferrell MA Feeling afraid as if somethi ng awful might happen 0 07/02/2025 10:25 AM Kenya Ferrell MA TESSA-7 Total Score 1 07/02/2025 10:25 AM Kenya Ferrell MA documented as of this encounter Plan of Treatment Upcoming Encounters Date Type Department Care Team (Late st Contact Info) Description 09/02/2025 4:00 PM EST Telemedicine [facility] MED[facility] [address] [place] [address] Flora Vargas, ANP [address] [place] [address] documented as of this encounter Visit Diagnoses Not on filedocumented in this encounter Additional Health Concerns Assessment Noted Time PHQ-9 Depression Total Score: 2 07/02/20 25 10:26 AM EST documented as of this encounter Care Teams Instrumental Musician Relationship Specialty Start Date End Date Flora Vargas ANP [address] [place] [address] PCP - General Family Medicine 07/10/22 documented as of this encounter
--- OUTSIDE RECORDS SUMMARY | 2025-07-02 20:48 | XMS_ITS | Encounter Summary ---
Author Organization [employer] Address [address] 7[address] [place] [address] Care Team Providers Care Human Performance Consultant Name Role Phone Sam Flora JOHSNON Primary Care Provider Encounter Details Date Type Department Care Team (Latest Contact Info) Description 06/30/2025 Travel Social History Tobacco Use Types Packs/Day [...] more drinks on one occasion? 1 07/01/2024 Housing Stability Answer Date Recorded What is [...] Date Recorded Patient Health Questionnaire-2 Score 0 10/26/2022 Internet Access Answer Date Recorded Internet Access Q1 Yes 06/24/2024 Internet Access Q2 Not on file 06/24/2024 Comments Unknown Sex and Gender Information Value Date Recorded Sex Assigned at Female 06/12/2022 10:36 AM EDT Legal Sex Female 10:36 AM EDT Gender Identity Female 06/12/2022 10:36 AM EDT Sexual Orientation Straight 06/12/2022 10 :36 AM EDT documented as of this encounter Plan of Treatment Upcoming Encounters Date Type Department Care Team (Late st Contact Info) Description 09/02/2025 4:00 PM EST Telemedicine [facility] MED[facility] [address] [place] [phone] Flora Vargas ANP [address] [place] [address] documented as of this encounter Visit Diagnoses Not on filedocumented in this encounter Care Teams Human Performance Consultant Relationship Specialty Start Date End Date Flora Vargas ANP [address] [place] [phone] PCP - General Family Medicine 07/10/22 documented as of this encounter
--- OUTSIDE RECORDS SUMMARY | 2025-07-02 20:48 | XMS_ITS | Encounter Summary ---
Author Organization [employer] Address [address] [place] [address] Care Team Providers Care Paper Reel Operator Name Role Phone Flora Vargas Primary Care Provider [phone] Encounter Details Date Type Department Care Team ([facility] st Contact Info) Description 07/02/2025 Results Follow-Up [facility] [address] [place] [address] Flora Vargas, ANP [address] [place] [address] Chlamydia/N. Gonorrhoeae, PCR, Urine Social History Tobacco Use Types Packs/Day Years [...] Info) Description 09/02/2025 4:00 PM EST Telemedicine [facility] [address] [place] [address] Flora Vargas ANP [address] [place] [address] documented as of this encounter Visit Diagnoses Not on filedocumented in this encounter Additional Health Concerns Assessment Noted Time PHQ-9 Depression Total Score: 2 07/02/20 25 10:26 AM EST documented as of this encounter Care Teams Paper Reel Operator Relationship Specialty Start Date End Date Flroa Vargas ANP [address] [place] [address] PCP - General Family Medicine 07/10/22 documented as of this encounter
== END 2025-07-02 15:52 | disposition home or self-care (01) ==
LOC: HO.HHCLNP 15:51
PROVIDERS: Visit Provider Nurse Practitioner Primary Care
DX: Z20.2 Contact with and (suspected) exposure to infections with a predominantly sexual mode of transmission (principal)
CPT/HCPCS: 87491; 87591